=== PATIENT | male | born 1970 | race Caucasian/White ===

== ENCOUNTER 2019-12-10 08:55 | Outpatient (CLI) | payer OTHER, SELFPAY ==
[2019-12-10 16:46] LABS: SARS-CoV-2 RNA PCR Negative
== END 2019-12-10 08:56 | disposition home or self-care (01) ==
LOC: ANHCOVIDDT 08:56
PROVIDERS: PCP Family Medicine; Visit Provider Internal Medicine Gastroenterology
DX: Z01.818 Encounter for other preprocedural examination (principal); Z11.59 Encounter for screening for other viral diseases
CPT/HCPCS: 87635; C9803; U0003

== ENCOUNTER 2019-12-13 00:52 | Day surgery (SDC) | payer OTHER, SELFPAY ==
[2019-12-06 10:49] VITALS: BMI 31.6
[2019-12-13 09:34] VITALS: BP 148/94; PULSE 64; RESP 14; TEMP 37.1; O2SAT 98; BMI 32.0
[2019-12-13] MEDS: LACTATED RINGERS 1,000 ML 150 ML IV CONT (09:51)
--- NOTE | 2019-12-13 09:55 | SUR.PREOP ---
PATIENTS BLOOD SUGAR TAKEN AT 0950 = [phone]
[2019-12-13 09:56] LABS: Glucose Point of Care 266 (65-105)
--- NOTE | 2019-12-13 10:24 | WPDANESEPPF ---
Anes - Initial Pre Proc Eval Procedure: Operation Date: 12/13/19 10:45 Proposed Procedures p Esophagogastroduodenoscopy & Colonoscopy - David Schafer MD Date/Time: 12/13/19 10:24 Surgeon: David Schafer MD Pre Op Diagnosis: dysphagia and rectal bleeding Patient Data Age: 49 Gender: M Height: 6 ft 3 in Weight: 116.2 kg Last Vital Signs Temp 37.1 C 12/13/19 09:34 Pulse 64 12/13/19 09:34 Resp 14 12/13/19 09:34 BP 148/94 H 12/13/19 09:34 Pulse Ox 98 12/13/19 09:34 Allergies Allergy/AdvReac Type Severity Reaction Status Date / Time No Known Allergies Allergy Mild Verified 12/13/19 09:25 Home Medications Medication Instructions Recorded Confirmed Type tramadol 50 mg tablet 50 mg PO BID PRN #180 tablet 08/12/19 12/13/19 Rx atorvastatin 80 mg tablet 80 mg PO DAILY #90 tablet 11/25/19 12/13/19 Rx coenzyme Q10 100 mg capsule 100 mg PO DAILY #90 cap 11/25/19 12/13/19 Rx escitalopram oxalate 20 mg tablet 20 mg PO DAILY #90 tablet 11/25/19 12/13/19 Rx insulin glargine 100 unit/mL (3 35 unit SUB-Q .2 times daily #15 ml 11/25/19 12/13/19 Rx mL) subcutaneous pen insulin lispro 100 unit/mL 24 unit SUB-Q .COMPLEX #15 ml 11/25/19 12/13/19 Rx subcutaneous pen alprazolam 0.25 mg tablet 0.25 mg PO BID #60 tablet 12/01/19 12/13/19 Rx Laboratory Tests 12/13/19 09:50 POC Capillary Glucose 266 mg/dl H mg/dl (65-105) Patient hx anesthesia problems: none Family hx anesthesia problems: none PMFSH Past Medical History Medical History Adenomatous colon polyp Family History Family History Mother Diabetes mellitus Cerebrovascular accident Family history of malignant neoplasm Grandparent Family history of polycystic kidney disease Family history of malignant neoplasm Other Acute myocardial infarction Social History Social History Smoking packs per day: 3 Smoking cigarettes per day: 60.0 Years smoked: 35 Smoking pack-years: 105.00 Smoking status: Former smoker Smoking end date: 07/20/09 Alcohol intake: never Substance use: never Anes - Eval Final PreProcedure Day of Procedure 12/13/19 10:24 Patient weight: obese Heart: regular rate and rhythm Lungs: clear to auscultation Airway: Mallampati scale class II Neurological: alert and oriented Last oral intake: >/= 8 hours ASA classification: III Emergent: no Anesthetic plan: proceed Anesthesia type and monitoring: general GIVS and standard monitoring Informed Consent: The patient's anesthetic plan and its attendant risks and benefits were discussed with the patient/family/POA. Questions were solicited and answers provided to the satisfaction of the patient/family/POA.
--- NOTE | 2019-12-13 11:01 | WPDHPUPDATE1 ---
History and Physical Update Update Date/Time: 12/13/19 11:01 History and Physical has been reviewed, including an updated exam of the patient. There are NO changes in the patient's condition. Risks, benefits, and alternatives have been discussed and questions answered. Patient agrees to proceed with procedure.
--- NOTE | 2019-12-13 11:22 | SUR.OPER ---
Addendum entered by Kayleigh Mcclure RN 12/13/19 11:46: COLONOSCOPY START 1124, END 1143 Original Note: EGD START 1108, END 1117 COLONOSCOPY START
[2019-12-13 11:50] VITALS: BP 142/72; PULSE 60; RESP 16; O2SAT 97
[2019-12-13 12:00] VITALS: BP 124/89; PULSE 57; RESP 21; O2SAT 98
[2019-12-13 12:09] LABS: Glucose Point of Care 222 (65-105)
[2019-12-13 12:10] VITALS: BP 125/96; RESP 60; O2SAT 100
== END 2019-12-13 12:35 | disposition home or self-care (01) ==
PROVIDERS: PCP Family Medicine; Visit Provider Internal Medicine Gastroenterology
PROC: 0DJ08ZZ Inspection of Upper Intestinal Tract, Via Natural or Artificial Opening Endoscopic (ICD-10-PCS; CPT 43235; principal; 2019-12-13 10:45)
DX: K92.1 Melena (principal); D12.0 Benign neoplasm of cecum; D12.3 Benign neoplasm of transverse colon; K63.5 Polyp of colon; K64.8 Other hemorrhoids; K21.0 Gastro-esophageal reflux disease with esophagitis; K22.2 Esophageal obstruction; K44.9 Diaphragmatic hernia without obstruction or gangrene; K29.70 Gastritis, unspecified, without bleeding; E11.9 Type 2 diabetes mellitus without complications; Z79.4 Long term (current) use of insulin; Z87.891 Personal history of nicotine dependence; E66.9 Obesity, unspecified; Z68.32 Body mass index [BMI] 32.0-32.9, adult
CPT/HCPCS: 45385; 43239; 43249; 88305; J2001; J2704; J7120

== ENCOUNTER 2020-06-05 13:44 | Emergency (ER) | payer OTHER, SELFPAY ==
[2020-06-05 13:50] VITALS: BP 141/75; PULSE 60; RESP 20; TEMP 36.3; O2SAT 98
[2020-06-05 14:19] LABS: Glucose Point of Care 208 (65-105)
--- NOTE | 2020-06-05 14:33 | ED.GENADULT ---
HPI - General Adult General Chief complaint: Dizziness Stated complaint: dizzy/body aches Source: patient Mode of arrival: ambulatory Limitations: no limitations History of Present Illness HPI narrative: Patient is a 49-year-old male who presents complaining of dizziness, lightheadedness and generalized body aches x1 day. Patient reports dizziness increases when bending over. Patient is a type II diabetic who is generally well controlled. He denies taking zwcz-uan-twlsavo medications he denies nausea, vomiting or diarrhea. He denies known exposure to Covid. MD complaint: Dizziness Related Data Home Medications Medication Instructions Recorded Confirmed insulin lispro [Humalog U-100 1 sliding scale dose SUBCUT 06/05/20 06/05/20 Insulin] USEASDIRECTD Allergies Allergy/AdvReac Type Severity Reaction Status Date / Time No Known Allergies Allergy Mild Verified 03/12/20 15:33 Review of Systems Review of Systems: Narrative: CONSTITUTIONAL: Denies fever, chills, or sweats. EYES: Denies visual changes, redness, or discharge. ENT: Denies rhinorrhea, congestion, sore throat, or otalgia. CARDIOVASCULAR: Denies chest pain, palpitations, or edema. RESPIRATORY: Denies cough or dyspnea. GASTROINTESTINAL: Denies abdominal pain, nausea, vomiting, or diarrhea. GENITOURINARY: Denies dysuria or hematuria. SKIN: Denies rash or itching. MUSCULOSKELETAL: Denies back pain, joint pain, or myalgia. NEUROLOGIC: Denies headache, numbness, reports dizziness and generalized body aches PSYCHIATRIC: Denies anxiety or depression. [facility], [facility] Past Medical History Medical History Adenomatous colon polyp Family History Family History Mother Diabetes mellitus Cerebrovascular accident Family history of malignant neoplasm Grandparent Family history of polycystic kidney disease Family history of malignant neoplasm Other Acute myocardial infarction Social History Social History Smoking packs per day: 3 Smoking cigarettes per day: 60.0 Years smoked: 35 Smoking pack-years: 105.00 Smoking status: Former smoker Smoking end date: 07/20/09 Alcohol intake: never Substance use: never Exam Narrative: Exam Narrative: GENERAL: Well-appearing, well-nourished, and in no acute distress. HEAD: Normocephalic, atraumatic. EYES Conjunctiva are normal. ENT: Mucous membranes pink and moist. TMs normal bilaterally. Throat normal. Uvula midline. CHEST: No respiratory distress. HEART: Regular rate and rhythm. EXTREMITIES: Normal range of motion. No edema. SKIN: Warm, dry, no rash. NEURO: No focal deficits. Alert and oriented x3. Gait steady. PSYCH: Normal affect. No signs of depression or anxiety. Course Vital Signs Vital signs: Vital Signs Temperature 36.3 C L 06/05/20 13:50 Pulse Rate 60 06/05/20 13:50 Respiratory Rate 20 06/05/20 13:50 Blood Pressure 141/75 H 06/05/20 13:50 Pulse Oximetry 98 06/05/20 13:50 Temperature 36.3 C L 06/05/20 13:50 Pulse Rate 60 06/05/20 13:50 Respiratory Rate 20 06/05/20 13:50 Blood Pressure 141/75 H 06/05/20 13:50 Pulse Oximetry 98 06/05/20 13:50 Reviewed. Patient has been instructed to follow-up with his PCP regarding his blood pressure. Transfer Transfered to: [facility] Transportation: Other (Refuses EMS transport at this time.) Transfer rationale: Higher level care Accepting physician: Dr. Glez Transfer comments: Report given to DIXIE Cancino Medical Decision Making MDM Narrative Medical decision making narrative: Patient's strep and influenza are negative at this time. Patient's orthostatics are normal. Discussed with patient possible causes of his dizziness and lightheadedness and also encourage patient to be seen in the ER for further evaluation. Patient will also be sent for Cov
[2020-06-05 14:40] VITALS: BP 141/89; PULSE 62
[2020-06-05 14:42] VITALS: BP 148/96; PULSE 66
[2020-06-05 14:44] VITALS: BP 134/94; PULSE 74
== END 2020-06-05 14:50 | disposition short-term general hospital (02) ==
PROVIDERS: Emergency Provider Nurse Practitioner; PCP Family Medicine
DX: R42 Dizziness and giddiness (principal); Z20.828 Contact with and (suspected) exposure to other viral communicable diseases; F17.210 Nicotine dependence, cigarettes, uncomplicated
CPT/HCPCS: 81003; 82948; 87081; 87804; 87880; 99213; G0463

== ENCOUNTER 2021-01-02 12:22 | Observation (INO) | payer BC, OTHER, SELFPAY ==
[2021-01-02] VITALS (7 sets, daily range): BP systolic 115–150; BP diastolic 64–92; PULSE 58–78; RESP 16–23; TEMP 36.2–36.7; O2SAT 97–99; BMI 30.3
--- NOTE | ~2021-01-02 | XR_ITS ---
EXAMINATION: XR chest 2V EXAM DATE: 01/02/2021 12:44 INDICATION: Left-sided chest pain. Shortness of breath. TECHNIQUE: Frontal and lateral projections of the chest obtained and reviewed. There is no prior gi dy for comparison. FINDINGS: Some chronic appearing left lateral sulcus pleural blunting. The lungs are otherwise clear . There are no pleural effusions. The cardiomediastinal silhouette is within normal limits. There is no pneumothorax suspected. The bones and soft tissues are unremarkable. IMPRESSION: No acute cardiopulmonary findings. Reviewed, dictated and finalized at location B.
--- NOTE | ~2021-01-02 | NM_ITS ---
EXAMINATION: NM melina stress w perfusion DATE: 01/03/2021 13:51 CDT INDICATION: Chest pain TECHNIQUE: Rest images were obtained following intravenous administration of 9.8 mCi Tc99m tetrofosmi n (Myoview). The patient was infused intravenously with Lexiscan (regadenoson). Then, 30 mCi Tc99m te trofosmin (Myoview) was administered intravenously, and stress images were obtained. Data was reconst ructed into short axis and horizontal and vertical long axis SPECT images. Gated SPECT images were al so obtained. COMPARISON: None. FINDINGS: There is no definite reversible or fixed perfusion abnormality to suggest ischemia or infar ction. There is no segmental wall motion abnormality. Left ventricular ejection fraction measures 5 7%. IMPRESSION: 1. No definite ischemia or infarct. 2. Mildly decreased left ventricular ejection fraction measuring 57%. Reviewed, dictated and finalized at location A.
--- NOTE | 2021-01-02 12:25 | ECG_ITS ---
Measurements Intervals Gray Rate: 78 P: 53 UT: 169 QRS: -29 QRSD: 109 T: 55 QT: 351 QTc: 402 Interpretive Statements SINUS RHYTHM BORDERLINE R WAVE PROGRESSION, ANTERIOR LEADS BORDERLINE ECG Electronically Signed On 01-02-2021 13:03:30 CDT by Kyle Ramsey D.O.
[2021-01-02 12:38] LABS: Basophils Absolute Auto 0.1 K/mm3 (0.0-0.1); Basophils Percent Auto 0.7 % (0.2-1.2); Eosinophils Absolute Auto 0.3 K/mm3 (0-0.3); Eosinophils Percent Auto 3.6 % (0-4.4); Hematocrit 51.3 % (42.0-52.0); Hemoglobin 17.9 g/dL (14.0-18.0); Immature Granulocyte Absolute 0.04 K/mm3 (0.00-0.031); Immature Granulocyte Percent A 0.5 % (0-0.5); Lymphocytes Absolute Auto 2.59 K/mm3 (0.9-3.2); Lymphocytes Percent Auto 30.7 % (18.3-44.2); Mean Corpuscular HGB Conc 34.9 g/dl (32-36); Mean Corpuscular Hemoglobin 30.3 pg (26-34); Mean Corpuscular Volume 86.9 fl (80-100); Mean Platelet Volume 11.3 fl (7.4-10.4); Monocytes Absolute Auto 0.5 K/mm3 (0.1-0.6); Monocytes Percent Auto 5.3 % (2.6-8.5); Neutrophils Percent Auto 59.2 % (45.5-73.1); Platelet Count Result 208 k/mm3 (150-375); Red Cell Distribution Width 11.9 % (11.5-14.5); White Blood Count 8.4 K/mm3 (4.5-10.0)
[2021-01-02 12:48] LABS: Anion Gap 10 mmol/L (8-16); Blood Urea Nitrogen 17 mg/dL (9-20); Calcium 9.5 mg/dL (8.4-10.2); Carbon Dioxide 22 mmol/L (22-30); Chloride 105 mmol/L (98-107); Estimated CRCL calculation 96 ml/min; Estimated Glomerular Filt Rate > 60; Glucose 267 mg/dL (75-110); Potassium 4.1 mmol/L (3.4-5.0); Sodium 137 mmol/L (137-145)
[2021-01-02 12:49] LABS: INR 0.9; Prothrombin Time 12.8 Seconds (11.1-14.7)
[2021-01-02 12:50] LABS: Partial Thromboplastin Time 22.8 SECONDS (22.3-36.8)
[2021-01-02 13:00] LABS: Troponin I < 0.012 ng/mL (0.000-0.034)
--- NOTE | 2021-01-02 15:12 | ED.CHESTPAIN ---
HPI - Chest Pain General Chief Complaint: Chest Pain Stated Complaint: chest pain Time Seen by Provider: 01/02/21 14:49 Source: patient and RN notes reviewed Mode of arrival: ambulatory Limitations: no limitations History of Present Illness HPI narrative: Patient is 50 years old white male presents with chest pain and shortness of breath, off and on for 1 week. Was seen by his family physician yesterday and is scheduled for echo and cardiac stress test next week. Patient woke up this morning to prepare himself to go to work and pain came back again sharp, like somebody sitting on his chest, radiating all the way to the back associated with shortness of breath. Patient noticed that activity make the shortness of breath and chest pain worse, laying down and relaxing make it better. Patient denies any new stress. Patient quit smoking 8 years ago, history of diabetes, strong family history of coronary artery disease including his mom, his sister and his brother. Patient does not smoke or drink or uses drugs. Related Data Home Medications Medication Instructions Recorded Confirmed insulin lispro 100 unit/mL 1 sliding scale dose SUBCUT 12/13/20 01/01/21 subcutaneous solution USEASDIRECTD PRN Allergies Allergy/AdvReac Type Severity Reaction Status Date / Time No Known Allergies Allergy Mild Verified 01/01/21 15:13 Review of Systems Review of Systems: Narrative: CONSTITUTIONAL: Denies fever, chills, or sweats. EYES: Denies visual changes, redness, or discharge. ENT: Denies rhinorrhea, congestion, sore throat, or otalgia. CARDIOVASCULAR: Denies chest pain, palpitations, or edema. RESPIRATORY: Denies cough or dyspnea. GASTROINTESTINAL: Denies abdominal pain, nausea, vomiting, or diarrhea. GENITOURINARY: Denies dysuria or hematuria. SKIN: Denies rash or itching. MUSCULOSKELETAL: Denies back pain, joint pain, or myalgia. NEUROLOGIC: Denies headache, numbness, or weakness. PSYCHIATRIC: Denies anxiety or depression. [facility] Past Medical History Medical History Adenomatous colon polyp Family History Family History Mother Diabetes mellitus Cerebrovascular accident Family history of malignant neoplasm Grandparent Family history of polycystic kidney disease Family history of malignant neoplasm Other Acute myocardial infarction Social History Social History Smoking packs per day: 3 Smoking cigarettes per day: 60.0 Years smoked: 35 Smoking pack-years: 105.00 Smoking status: Former smoker Smoking end date: 07/20/09 Alcohol intake: never Substance use: never Gender identity (if verbalized by the patient): Male Spiritual care concerns: No Agree to blood products: Yes Exam Narrative: Exam Narrative: General appearance: Well-developed, well-nourished Skin: Normal color Head: Normocephalic, nontraumatic Eyes: Clear conjunctiva ENT: Oropharynx normal, ears normal, nose normal Neck: Supple, nontender Chest and respiratory: Airway patent, no respiratory distress, no accessory muscle use Heart: Regular rate/rhythm Abdomen: Soft, nontender, no organomegaly, quiet bowel sounds Vascular: Normal peripheral pulses, normal capillary refill. Musculoskeletal: Normal range of motion, nontender back Neurologic: Alert and oriented ?3, CIGAR HEAD PUNCHER is normal as tested, no gross motor deficit Course Course Emergency Course: Stable Vital Signs Vital signs: Vital Signs Temperature 36.7 C 01/02/21 12:31 Pulse Rate 78 01/02/21 12:31 Respiratory Rate 19 01/02/21 12:31 Blood Pres
[2021-01-02 15:54] LABS: Troponin I < 0.012 ng/mL (0.000-0.034)
[2021-01-02] MEDS: ASPIRIN 81 MG CHEWABLE TABLET 324 MG PO (17:46)
[2021-01-02 18:58] LABS: Troponin I < 0.012 ng/mL (0.000-0.034)
[2021-01-02] MEDS: ALPRAZolam (*CRX) 0.25 MG TABLET PO (19:00)
[2021-01-02 21:19] LABS: Glucose Point of Care 282 mg/dl (65-105)
[2021-01-03] VITALS (12 sets, daily range): BP systolic 129–142; BP diastolic 59–85; PULSE 56–77; RESP 20–23; TEMP 35.8–36.4; O2SAT 95–100
--- NOTE | 2021-01-03 01:23 | PM.IMHP ---
H&P: HPI History of Present Illness Date/Time: 01/03/21 01:23 Chief Complaint: Chest pain, shortness of breath Narrative: 50-year-old with past medical history of poorly controlled insulin-dependent diabetes mellitus and hypertension who presented to the ER due to chest pain and shortness of breath. The patient had been evaluated by primary care physician on 01/01/2021 due to reports of substernal in left-sided chest pain that radiated through to the back. The patient reported to his primary care physician that the symptoms have been going on and off for a couple of weeks. At the time of my evaluation the patient reported that the pain had been ongoing for the last several days. He had reported a cough the primary care physician. He sits the time of my evaluation that he has had a mild cough but is for the most part nonproductive. He has been checking his temperatures at home and has been afebrile. He previously had COVID in September of 2019. He has not had a COVID vaccine. He has not had any loss of sense of taste or smell. He has noticed that his chest pain is been accompanied by did dyspnea on exertion. His pain is nonpleuritic. It is a 10/10 in intensity at its worse in his sharp and stabbing in nature. The pain waxes and wanes. He reports that the pain lasted throughout most of the day yesterday until after he came to the ER. He was referred for outpatient stress test and echocardiogram next . He reported that on the morning of the he woke up and felt weak and tired. He had recurrence of pain and it was the most severe that it had been. He decided that he felt bad enough that he could not go to work and came to the ER for evaluation. The patient reports that the pain no longer radiates through to the back. He denies any orthopnea, paroxysmal nocturnal dyspnea, or lower extremity swelling. He has not had any recent travel. He lives a sedentary life sets of her standing on his feet at work. The patient had had similar pains about 10 years ago and had stress test that was abnormal and had a cardiac catheterization that was reportedly normal. He reports that the cardiac catheterization was performed at [facility]. His glucoses are historically uncontrolled. He reports his average glucose is in the mid 200s. He reports compliance with his home insulin therapy. He has been referred to an fine grader. He reports snoring and excessive daytime sleepiness. He suspects that he has obstructive sleep apnea but has never followed up with a polysomnogram. He has chronic numbness and tingling to his feet. He was recently started on amoxicillin due to ear pain. He has only 1 or 2 days and he was antibiotic treatment. He also has chronic dental caries on the left upper jaw. Review of Systems Review of Systems: Narrative: 12 systems were reviewed with pertinent positives and negatives per HPI. Except as documented in the HPI, all other systems were reviewed and are negative. [facility] Past Medical History Medical History (Updated 01/03/21 @ 08:15 by Mae Durbin DO) Adenomatous colon polyp Diabetes mellitus 12/03/2019 hemoglobin A1c 11.4% Diabetic peripheral neuropathy Erectile dysfunction Esophageal ring Gastritis Hiatal hernia Reflux esophagitis Vitamin D deficiency Surgical History Surgical History (Updated 01/03/21 @ 01:33 by Mae Durbin DO) History of colonoscopy with polypectomy (12/13/19) Dr. Schafer History of esophagogastroduodenoscopy (EGD) (12/13/19) Reflux esophagitis, esophageal ring, hiatal hernia and gastritis Family History Family History (Updated 01/03/21 @ 08:05 by Mae Durbin DO) Mother Diabetes mellitus Cerebrovascular accident Acute myocardial infarction Grandparent Family history of polycystic kidney disease Family history of malignant neoplasm Sibling Acute myocardial infarction, Onset Age: 50 Sister, the patient's brother has something w
--- NOTE | 2021-01-03 07:25 | ECHO_ITS ---
Patient Info Name: Tate Masters Age: 50 years : 1970 Gender: Male Ht: 75 in Wt: 242 lbs BSA: 2.43 m2 HR: 55 bpm BP: 134 / 59 mmHg Technical Quality: Good Exam Date: 01/03/2021 9:11 AM Exam Location: [facility] Patient Status: Inpatient Admit Date: 01/02/2021 Staff Ordering Physician: Tyree Deluca DO [facility] Director: Teodoro Pritchett RDCS, RT Attending Provider: Ishaan Boyd MD Referring Physician: Yosi YATES; Exam Type: CA echo doppler color flow Study Info Indications R00.0 - Tachycardia, unspecified Complete two-dimensional, color flow and Doppler transthoracic echocardiogram is performed. Strain analysis performed. Summary 1. Complete two-dimensional, color flow and Doppler transthoracic echocardiogram is performed. 2. Left ventricular systolic function is normal, estimated at 60-65%. 3. There is mildly increased left ventricular wall thickness. 4. The left ventricular diastolic function is normal. 5. There is mild aortic valve calcification. 6. The aortic valve is trileaflet. 7. There is no aortic valve stenosis. 8. There is no aortic valve regurgitation. 9. There is trace mitral valve regurgitation. Left Ventricle Left ventricular chamber dimension is normal. Left ventricular systolic function is normal, estimated at 60-65%. There is mildly increased left ventricular wall thickness. Left ventricular septal wall motion is normal. The left ventricular diastolic function is normal. Global longitudinal strain is normal at -17 %. Right Ventricle Right ventricular chamber dimension is normal. Right ventricular systolic function is normal. Left Atria Left atrial chamber dimension is normal. Right Atria Right atrial chamber dimension is normal. Atrial Septum Intact interatrial septum visualized by color flow imaging. Aortic Valve The aortic valve is trileaflet. There is no aortic valve sclerosis. There is no aortic valve stenosis. There is no aortic valve regurgitation. There is mild aortic valve calcification. Pulmonic Valve The pulmonic valve is normal. There is no pulmonic valve stenosis. There is no pulmonic regurgitation. Mitral Valve The mitral valve has normal leaflets. There is no mitral valve stenosis. There is trace mitral valve regurgitation. Tricuspid Valve The tricuspid valve leaflets are normal. There is no significant tricuspid valve stenosis. There is no tricuspid valve regurgitation. Pericardium/Pleural The pericardium appears normal. There is no pericardial effusion. Inferior Vena Cava Normal inferior vena cava with >50% collapse upon inspiration consistent with normal right atrial pressure, 5 mmHg. Aorta The aortic root size at the sinus of Valsalva is normal. The prox ascending aorta size is normal. Left Ventricular Outflow Tract Name Value Normal LVOT 2D LVOT Diameter 2.2 cm LVOT Doppler LVOT Peak Gradient 3 mmHg LVOT Mean Gradient 1 mmHg LVOT VTI 18 cm LVOT VTI/AV VTI Ratio
[2021-01-03 07:52] LABS: Glucose Point of Care 226 mg/dl (65-105)
[2021-01-03] MEDS: ALPRAZolam (*CRX) 0.25 MG TABLET PO (08:29)
[2021-01-03] MEDS: ENOXAPARIN 40 MG/0.4 ML SYRINGE SUB-Q (08:29)
[2021-01-03] MEDS: ASPIRIN 81 MG ENTERIC TABLET PO (08:29)
[2021-01-03] MEDS: AMOXICILLIN 500 MG CAPSULE PO (08:29)
[2021-01-03 08:33] LABS: Cholesterol 229 mg/dL (0-200); HDL Direct 47 mg/dL; Triglycerides 232 mg/dL (<150)
--- NOTE | 2021-01-03 08:43 | PM.CNCAR ---
Assessment and Plan Assessment and plan (1) Chest pain: Qualifiers: Chest pain type: unspecified Qualified Code(s): R07.9 - Chest pain, unspecified Code(s): R07.9 - Chest pain, unspecified Status: Acute Assessment and Plan: Patient with multiple risk factors for CAD, with chest pain which is somewhat atypical but certainly could be cardiac in etiology. No object of evidence of ischemia thus far by EKG or troponins. Agree with starting aspirin Check echo Lexiscan Further recommendations to follow depending on test results. (2) Type 2 diabetes mellitus with hyperglycemia, with long-term current use of insulin: Code(s): E11.65 - Type 2 diabetes mellitus with hyperglycemia; Z79.4 - intermediate card tender (current) use of insulin Status: Acute Assessment and Plan: A1c is greater than 10 (3) Hypertension: Code(s): I10 - Essential (primary) hypertension Status: Acute Assessment and Plan: Reasonably controlled (4) Mixed hyperlipidemia: Code(s): E78.2 - Mixed hyperlipidemia Status: Acute Assessment and Plan: Elevated cholesterol and triglycerides; should be on a statin because he has diabetes and apparently carotid disease as well. Will start atorvastatin 40 mg daily History of Present Illness History of Present Illness Consult date/time: 01/03/21 08:43 Requesting physician: Mae Durbin DO Consult reason: chest pain Reason For Visit: chest pain,anxiety-like symptoms Narrative: Date of service 01/03/2021 Tate Masters (pronounced Ten-yes ) is a 50-year-old male whom we were asked to see at the request of Dr. Durbin for advice and opinion regarding his chest discomfort in consultation. The patient has a history of hypertension, diabetes, a family history of premature coronary disease, and a history of carotid disease. Mr. Masters started having trouble about 1 week ago when he felt of pushing on the left chest which accelerated to sharp pains and it was hard to breathe. This occurred off and on over the next few days and once, after doing some yd work, he felt lousy with some chest discomfort. Any saw Dr. Chamorro a couple days ago who ordered a stress test and echo next week. However the his symptoms escalated and yesterday when he was trying to get ready for work was having a lot of hurting in his chest, like someone was sitting on it, radiating to his back. He was also having shortness of breath and no energy. The discomfort was non positional, nonpleuritic and non reproducible. He came to the emergency room and has been admitted. No problems overnight. Troponins are negative and EKG is unremarkable. The patient states he had a carotid ultrasound a few years ago which showed bilateral 60% stenosis. His diabetes has not been well controlled. Former smoker. Review of Systems Constitutional: Constitutional: Reports lethargy Eyes: Eyes: Reports no additional eye complaints ENT: Denies epistaxis Cardiovascular: Cardiovascular: Reports chest pain, Denies pedal edema, Denies leg edema and Denies lightheadedness Comments: No claudication. Respiratory: Respiratory: Denies cough, Denies hemoptysis, Reports dyspnea, Reports dyspnea on exertion and Denies wheezing Gastrointestinal: Gastrointestinal: Denies abdominal pain, Denies hematochezia and Denies hematemesis Comments: Rectal bleeding a couple years ago resolved after polypectomy. History of esophageal stricture and GERD, has not been a problem recently. Genitourinary: Genitourinary: Denies hematuria and Denies dysuria Musculoskeletal: Musculoskeletal: Reports arthralgias Integumentary/Breasts: Skin/Breast: Denies rash Neurologic: Denies confusion Psychiatric: Psych
[2021-01-03 08:44] LABS: LDL Cholesterol Direct 113 mg/dL
[2021-01-03 08:45] LABS: Hemoglobin A1C 10.1 % (<5.7)
--- NOTE | 2021-01-03 11:09 | PC.NURSE ---
Patient to NM @1110.
[2021-01-03 14:41] LABS: Glucose Point of Care 303 mg/dl (65-105)
[2021-01-03] MEDS: INSULIN GLARGINE (*BKC) 100 UNITS/ML 30 UNITS SUB-Q (15:02)
[2021-01-03] MEDS: INSULIN ASPART (*BKC) 100 UNITS/ML SUB-Q (15:03)
[2021-01-03] MEDS: INSULIN ASPART (*BKC) 100 UNITS/ML 15 UNITS SUB-Q (15:03)
--- NOTE | 2021-01-03 16:19 | PM.DS ---
DS: Admitting Diagnosis Admitting Diagnosis Admitting Diagnosis: Chest pain and SOB DS: Discharge Diagnosis Discharge Diagnosis (1) Chest pain: Qualifiers: Chest pain type: unspecified Qualified Code(s): R07.9 - Chest pain, unspecified Code(s): R07.9 - Chest pain, unspecified Status: Acute Assessment and Plan: Chest pain seems somewhat atypical but patient has multiple risk factors for coronary artery disease including family history of premature coronary disease and uncontrolled diabetes mellitus. Patient was subsequently admitted overnight and monitored in the IMU with serial troponins. The patient's troponins were negative. Subsequently of ordered a stress test and echocardiogram. Cardiology has been consulted. Pt had a negative stress test. Pt is ok for DC. Lipid panel is ABNL, pt started on statin and ASA. 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 Patient was subsequently admitted overnight and monitored in the IMU with serial troponins. The patient's troponins were negative. Subsequently of ordered a stress test and echocardiogram. Cardiology has been consulted. Pt had a negative stress test. Pt is ok for DC. Lipid panel is ABNL, pt started on statin and ASA Time Spent with Patient Time attestation: Total time spent providing and/or coordinating discharge services:40 minutes on day of discharge Exam Narrative: Exam Narrative: General: Well-developed, overweight, no acute distress HEENT: Mucous membranes are moist, no oral pharyngeal erythema, pupils are equal and reactive, head is normocephalic atraumatic, multiple dental caries, crowded posterior oropharynx Respiratory: Clear to auscultation bilaterally, no increased work of breathing Cardiovascular: Rhythm, no JVD, 2+ bilateral radial pedal pulses Gastrointestinal: Soft, nontender, nondistended, positive bowel sounds Skin: Non jaundice, no pallor Musculoskeletal: No clubbing, cyanosis or edema Neurological: Alert and oriented, speech is clear, no facial asymmetry Psychiatric: Appropriate mood and affect DS: Data Data Completed and Pending Labs on day of discharge: Labs from last 24 hours 01/03/21 01/03/21 01/03/21 14:03 08:00 08:00 POC Capillary Glucose 303 H Hemoglobin A1c 10.1 H Troponin I Triglycerides 232 H Cholesterol 229 H LDL Cholesterol Direct 113 HDL Direct 47 01/03/21 01/02/21 01/02/21 07:43 20:37 18:31 POC Capillary Glucose 226 H 282 H Hemoglobin A1c Troponin I < 0.012 Triglycerides Cholesterol LDL Cholesterol Direct HDL Direct Discharge Plan Discharge Attending physician on discharge: Vanessa Pineda Consulting providers: Nataliia Bledsoe ; Cricket Rojas ; Jerzy Tellez ; Parvez Graham ; Kyle Ramesy ; Mae Durbin Discharging Clinician: Vanessa Pineda Anticipated Discharge Date/Time: 01/03/21 16:14 Patient Disposition: Home, Self-Care Activity: as tolerated Diet: heart healthy Patient Instructions: Antibiotic Form Stand Alone Forms: General Discharge Information Follow-up/Referrals: Tryee Deluca
--- NOTE | 2021-01-03 20:03 | EST_ITS ---
Patient Info Name: Tate Masters Age: 50 years : 1970 Gender: Male Ht: 75 in Wt: 242 lbs BSA: 2.43 m2 Exam Date: 01/03/2021 12:00 PM Exam Location: [facility] Stress Patient Status: Inpatient Admit Date: 01/02/2021 Staff Ordering Physician: Mae Durbin DO Attending Provider: Ishaan Boyd MD Exercise Technologist: Natali Suresh RDCS Exercise Physician: Nataliia Bledsoe MD Exam Type: CA stress melina w NM Study Info Indications R07.9 - Chest pain, unspecified A regadenoson stress test was performed. Summary 1. No abnormal ST-T wave changes with lexiscan. 2. Nuclear test results to follow. Protocol: Lexiscan Stress ECG Details Stage: REST Duration (min): 7 min : 19 sec HR (bpm): 65 SBP (mmHg): 144 DBP (mmHg): 91 Stage: REST Duration (min): 20 min : 39 sec HR (bpm): 62 SBP (mmHg): 144 DBP (mmHg): 91 Stage: STAGE 1 Duration (min): 1 min : 0 sec HR (bpm): 76 SBP (mmHg): 132 DBP (mmHg): 100 Stage: RECOVERY Duration (min): 1 min : 0 sec HR (bpm): 81 SBP (mmHg): 139 DBP (mmHg): 96 Stage: RECOVERY Duration (min): 2 min : 0 sec HR (bpm): 74 SBP (mmHg): 139 DBP (mmHg): 96 Stage: RECOVERY Duration (min): 3 min : 0 sec HR (bpm): 73 SBP (mmHg): 143 DBP (mmHg): 92 Stage: RECOVERY Duration (min): 3 min : 7 sec HR (bpm): 73 SBP (mmHg): 143 DBP (mmHg): 92 Rest HR: 62 bpm Peak HR: 87 bpm Rest Sys BP: 144 mmHg Peak Sys BP: 143 mmHg Max Pred HR: 170 bpm % Max Pred HR: 51 % Target HR: 145 bpm Max RPP: 12,441 bpm*mmHg BP Response: Normal blood pressure response Termination Reason: Completed protocol Cardiac Symptoms: None Total Time: 1 min : 0 sec Rest Kam BP: 91 mmHg Peak Kam BP: 92 mmHg Total Dose: 0.4 mg Resting ECG Normal sinus rhythm - normal ECG. Stress ECG No abnormal ST/T wave changes with exercise. Arrhythmias None. Report Signatures
== END 2021-01-03 17:13 | disposition home or self-care (01) ==
LOC: ANHED 15:14 → ANHIMU 01-03 16:19
PROVIDERS: Internal Medicine; Admitting Provider Internal Medicine; Emergency Provider Emergency Medicine; PCP Family Medicine; Visit Provider Family Medicine
DX: R07.9 Chest pain, unspecified (principal); R06.00 Dyspnea, unspecified; I10 Essential (primary) hypertension; R00.0 Tachycardia, unspecified; E78.2 Mixed hyperlipidemia; E11.65 Type 2 diabetes mellitus with hyperglycemia; E11.42 Type 2 diabetes mellitus with diabetic polyneuropathy; E55.9 Vitamin D deficiency, unspecified; R06.83 Snoring; Z82.49 Family history of ischemic heart disease and other diseases of the circulatory system; Z79.4 Long term (current) use of insulin; Z87.891 Personal history of nicotine dependence; Z79.891 Long term (current) use of opiate analgesic; Z86.16 Personal history of COVID-19
CPT/HCPCS: 36415; 71046; 78452; 80048; 80061; 82948; 83036; 84484; 85025; 85610; 85730; 93005; 93017; 93306; 96372; 99285; A9270; A9502; G0378; J1650; J1815; J2785

== ENCOUNTER 2021-04-02 14:26 | Outpatient (CLI) | payer BC, OTHER, SELFPAY ==
[2021-04-02 20:17] LABS: Hemoglobin A1C 9.8 % (<5.7)
[2021-04-02 20:22] LABS: Anion Gap 12 mmol/L (8-16); Blood Urea Nitrogen 16 mg/dL (9-20); Calcium 9.5 mg/dL (8.4-10.2); Carbon Dioxide 24 mmol/L (22-30); Chloride 102 mmol/L (98-107); Estimated Glomerular Filt Rate > 60; Glucose 295 mg/dL (65-110); Potassium 4.2 mmol/L (3.4-5.0); Sodium 138 mmol/L (137-145)
[2021-04-12 13:42] LABS: pH 5.6
[2021-04-12 13:47] LABS: Amphetamines NEGATIVE
[2021-04-12 13:48] LABS: Oxidant NEGATIVE
[2021-04-12 13:49] LABS: Barbiturates NEGATIVE
[2021-04-12 13:50] LABS: Benzodiazepines NEGATIVE
[2021-04-12 13:51] LABS: Marijuana Metabolite NEGATIVE
[2021-04-12 13:52] LABS: Cocaine Metabolite NEGATIVE
[2021-04-12 13:53] LABS: Methadone NEGATIVE; Opiates NEGATIVE
== END 2021-04-02 14:27 | disposition home or self-care (01) ==
PROVIDERS: PCP Family Medicine; Visit Provider Family Medicine
DX: E11.65 Type 2 diabetes mellitus with hyperglycemia (principal); I10 Essential (primary) hypertension; Z79.899 Other long term (current) drug therapy; I70.90 Unspecified atherosclerosis; Z79.4 Long term (current) use of insulin
CPT/HCPCS: 36415; 80048; 80299; 83036

== ENCOUNTER 2021-06-03 12:06 | Outpatient (CLI) | payer BC, OTHER, SELFPAY ==
--- NOTE | ~2021-06-03 | XR_ITS ---
EXAMINATION: XR hip LT min 2V DATE: 06/03/2021 12:20 INDICATION: Left hip pain. TECHNIQUE: 2 views of left hip were obtained. COMPARISON: None. FINDINGS: Bone alignment is normal. No fracture. There is mild left hip osteoarthritis. IMPRESSION: 1. Mild left hip osteoarthritis. Reviewed, dictated and finalized at location A. ERCIAL LEASE ADMINISTRATOR
--- NOTE | ~2021-06-03 | XR_ITS ---
EXAMINATION: XR lumbar spine 2-3V DATE: 06/03/2021 12:20 INDICATION: Low back pain. TECHNIQUE: 3 views of lumbar spine were obtained. COMPARISON: None. FINDINGS: There is 3 degrees levocurvature of lumbar spine. Vertebral body heights are normal. There is mildly decreased disc height at L3-L4 with endplate osteophytes. The facet joints are unremarkable . IMPRESSION: 1. Mild lumbar spondylosis. Reviewed, dictated and finalized at location A. GENCY RESPONSE OFFICER IMPRESSION: 1. Mild lumbar spondylosis.
== END 2021-06-03 12:07 | disposition home or self-care (01) ==
LOC: ANHBWCIMG 12:07
PROVIDERS: PCP Family Medicine; Visit Provider Family Medicine
DX: M47.896 Other spondylosis, lumbar region (principal); M16.12 Unilateral primary osteoarthritis, left hip
CPT/HCPCS: 72100; 73502

== ENCOUNTER 2021-07-31 15:29 | Outpatient (CLI) | payer BC, OTHER, SELFPAY ==
[2021-07-31 19:54] LABS: Hemoglobin A1C 10.4 % (<5.7)
[2021-07-31 23:57] LABS: Creatinine Urine 151.5 mg/dL
[2021-08-01 01:16] LABS: Microalbumin Urine Random > 1140.0 mg/L (0-16.7)
== END 2021-07-31 15:30 | disposition home or self-care (01) ==
LOC: ANHBWCLAB 15:31
PROVIDERS: PCP Family Medicine; Visit Provider Family Medicine
DX: E11.65 Type 2 diabetes mellitus with hyperglycemia (principal)
CPT/HCPCS: 36415; 82043; 83036

== ENCOUNTER → 2021-08-03 00:48 | Outpatient (CLI) | payer BC, OTHER, SELFPAY ==
[2021-08-03 23:19] LABS: SARS-CoV-2 RNA PCR Positive
== END ==
PROVIDERS: PCP Family Medicine; Visit Provider Family Medicine
DX: U07.1 COVID-19 (principal); J02.9 Acute pharyngitis, unspecified
CPT/HCPCS: C9803; U0003; U0005

== ENCOUNTER 2022-01-08 10:28 | Outpatient (CLI) | payer BC, OTHER, SELFPAY ==
[2022-01-08 20:27] LABS: Alanine Aminotransferase 25 U/L (6-50); Albumin Level 4.6 g/dL (3.5-5.1); Alkaline Phosphatase 78 U/L (38-126); Anion Gap 6 mmol/L (8-16); Aspartate Amino Transferase 22 U/L (17-59); Bilirubin,Total 0.5 mg/dL (0.2-1.3); Blood Urea Nitrogen 17 mg/dL (9-20); Calcium 9.7 mg/dL (8.4-10.2); Carbon Dioxide 30 mmol/L (22-30); Chloride 103 mmol/L (98-107); Cholesterol 258 mg/dL (0-200); Estimated Glomerular Filt Rate > 60; Glucose 294 mg/dL (65-110); HDL Direct 47 mg/dL; Potassium 4.1 mmol/L (3.4-5.0); Sodium 139 mmol/L (137-145); Triglycerides 412 mg/dL (<150)
[2022-01-08 20:39] LABS: LDL Cholesterol Direct 103 mg/dL
[2022-01-08 20:53] LABS: Creatinine Urine 88.5 mg/dL
[2022-01-08 21:11] LABS: Hemoglobin A1C 9.4 % (<5.7)
[2022-01-08 22:52] LABS: Microalbumin Urine Random > 1140.0 mg/L (0-16.7)
== END 2022-01-08 10:29 | disposition home or self-care (01) ==
PROVIDERS: PCP Family Medicine; Visit Provider Family Medicine
DX: E11.9 Type 2 diabetes mellitus without complications (principal)
CPT/HCPCS: 36415; 80053; 80061; 82043; 83036

== ENCOUNTER 2022-01-10 15:15 | Outpatient (CLI) | payer BC, OTHER, SELFPAY ==
--- NOTE | ~2022-01-10 | CT_ITS ---
CT OF PELVIS EXAMINATION: CT pelvis wo con DATE: 01/10/2022 15:35 INDICATION: Left hip and pelvic pain. TECHNIQUE: Computed tomography (CT) of the pelvis was performed without intravenous contrast. Automat ed exposure control and iterative reconstruction technique were employed. The dose-length product was 700.90 mGy-cm. COMPARISON: X-ray left hip 06/03/2021. FINDINGS: Limitations: None Bones: Normal mineralization. No concerning lytic or blastic lesions. Bilateral superior hip joint sp gardenia narrowing. Mild bilateral femoral head osteophytosis, slightly more progressive on the left. Mild degenerative change in the lower lumbar spine and pubic symphysis. Bilateral quadriceps enthesopathy . Soft Tissues:Small fat-containing umbilical and left inguinal hernias. Atherosclerotic arterial calci fications. Normal appendix. Bladder wall thickening likely on the basis of outlet compromise from pro statomegaly. Mild pericecal inflammatory change. Fluid: No significant fluid within the joint capsule or surrounding bursal spaces. IMPRESSION: Mild-moderate osteoarthritic changes in the left hip. Mild pericecal inflammatory change of uncertain significance. If there is right lower quadrant pain, or other right lower quadrant or GI symptoms co nsider CT of the abdomen and pelvis with contrast for further evaluation. Reviewed, dictated and finalized at location K. IMPRESSION: Mild-moderate osteoarthritic changes in the left hip. Mild pericecal inflammato ry change of uncertain significance. If there is right lower quadrant pain, or other right lower quadrant or GI symptoms consider CT of the abdomen and pelvis with contrast for further evaluation.
== END 2022-01-10 15:16 ==
LOC: MICIMG 15:16
PROVIDERS: PCP Family Medicine; Visit Provider Family Medicine
DX: R10.30 Lower abdominal pain, unspecified (principal); R10.2 Pelvic and perineal pain; M16.12 Unilateral primary osteoarthritis, left hip
CPT/HCPCS: 72192

== ENCOUNTER 2022-04-21 08:20 | Outpatient (CLI) | payer BC, OTHER, SELFPAY ==
[2022-04-21 19:56] LABS: Hemoglobin A1C 9.4 % (<5.7)
[2022-04-21 20:38] LABS: Creatinine Urine 72.7 mg/dL
[2022-04-21 22:19] LABS: MALB Creatinine Ratio 1568.1 mg/g (0-30); Microalbumin Urine Random > 1140.0 mg/L (0-16.7)
== END 2022-04-21 08:21 | disposition home or self-care (01) ==
LOC: ANHBWCLAB 08:22
PROVIDERS: PCP Family Medicine; Visit Provider Family Medicine
DX: E11.9 Type 2 diabetes mellitus without complications (principal)
CPT/HCPCS: 36415; 82043; 83036

== ENCOUNTER 2022-06-23 15:49 | Outpatient (CLI) | payer BC, SELFPAY ==
--- NOTE | ~2022-06-23 | XR_ITS ---
XR abdomen obstructive series DATE: 06/23/2022 16:04 INDICATION: Upper left abdominal pain for one month TECHNIQUE: Supine and upright AP views COMPARISON: None FINDINGS: Status post sternotomy. Surgical clips overlie the left upper quadrant superomedially. No evidence of intraperitoneal free air. The psoas shadows appear intact. No visceromegaly is evident . No bowel obstruction is detected. IMPRESSION: Nonspecific abdomen; no bowel obstruction or free air Reviewed, dictated and finalized at Location A. Reviewed, dictated and finalized at location B. R READER
== END 2022-06-23 15:50 | disposition home or self-care (01) ==
PROVIDERS: PCP Family Medicine; Visit Provider Family Medicine
DX: R10.9 Unspecified abdominal pain (principal); K58.9 Irritable bowel syndrome, unspecified
CPT/HCPCS: 74019

== ENCOUNTER 2022-09-18 07:44 | Outpatient (CLI) | payer BC, SELFPAY ==
[2022-09-18 20:23] LABS: Hemoglobin A1C 9.7 % (<5.7)
[2022-09-18 21:14] LABS: Creatinine Urine 62.1 mg/dL
[2022-09-18 22:17] LABS: Microalbumin Urine Random > 1140.0 mg/L (0-16.7)
== END 2022-09-18 07:45 | disposition home or self-care (01) ==
LOC: ANHBWCLAB 07:45
PROVIDERS: PCP Family Medicine; Visit Provider Family Medicine
DX: E11.9 Type 2 diabetes mellitus without complications (principal)
CPT/HCPCS: 36415; 82043; 83036